=== PATIENT | female | born 1995 | race Caucasian/White ===

== ENCOUNTER 2020-10-29 15:39 | Emergency (ER) | payer SELFPAY ==
[~2020-10-29] VITALS: Ht 170.2 cm; Wt 56.7 kg
[2020-10-29 15:49] VITALS: BP 128/77
[2020-10-29] MEDS ORDERED: LORAZEPAM 1 MG TABLET ONE (16:18)
[2020-10-29] MEDS ORDERED: ESCI5TAB PO (16:28)
--- NOTE | 2020-10-29 16:28 | NUR ---
Patient discharged to home in stable condition. Written and verbal after care instructions given. Patient verbalizes understanding of instruction.
[2020-10-29] MEDS ORDERED: LORAZEPAM 1 MG TABLET PO ONE (16:30)
== END 2020-10-29 16:28 | disposition home or self-care (01) ==
LOC: ER 15:56
DX: F43.0 Acute stress reaction (principal); Z79.899 Other long term (current) drug therapy